=== PATIENT | female | born 2000 | race Caucasian/White ===

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

== ENCOUNTER 2022-05-28 19:06 | Outpatient (REF) | payer MEDICAID, SELFPAY | END 2022-05-28 19:07 | disposition home or self-care (01) | LOC: LBN 19:06 | PROVIDERS: PCP Nurse Practitioner; Visit Provider Nurse Practitioner Family | DX: J02.9 Acute pharyngitis, unspecified (principal) | CPT/HCPCS: 87077; 87070 ==

== ENCOUNTER 2023-03-08 19:55 | Emergency (ER) | payer MEDICAID, SELFPAY ==
[2023-03-08 19:58] VITALS: BP 129/86; PULSE 113; RESP 16; TEMP 36.8; O2SAT 100
--- NOTE | 2023-03-08 20:17 | DI.RAD_ITS ---
Exam(s) XR WRIST LT COMPLETE EXAM: XR WRIST LT COMPLETE CLINICAL HISTORY: radial aspect pain; hit with PS controller. TECHNIQUE: 2D digital imaging was performed of the left wrist. Three images were obtained. PA, obl ique and lateral views were obtained. COMPARISON: CR XR WRIST LT LIMITED from 06/20/2020 FINDINGS: BONES: No acute fracture is present. No bony destructive lesion is seen. JOINTS: The carpal bones are normally aligned. SOFT TISSUE: Normal. IMPRESSION: Unremarkable radiographs of the left wrist. DATA REPOSITORY: RADIATION DOSE DELIVERED:
--- NOTE | 2023-03-08 20:30 | ED.GENADUL_ITS ---
Discharge Plan Disposition Patient Disposition: Home Condition: Improving Discharge Details Chief Complaint: Orthopedic Clinical Impression: Contusion of wrist Primary Care Provider: Batsheva Draper ED Provider: Orlin Escobar Home Meds and New Rx's Prescriptions: No Action citalopram 20 mg tablet 20 mg PO DAILY Qty: 90 4RF medroxyprogesterone [Depo-Provera] 150 mg/mL suspension 150 mg IM Q12W Qty: 1 3RF Metamucil [place] Powder 1 tbsp PO BID Qty: 575 4RF amitriptyline 50 mg tablet 50 mg PO QHS Qty: 90 4RF montelukast [Singulair] 10 mg tablet 10 mg PO DAILY Qty: 90 4RF cetirizine 10 mg tablet 20 mg PO DAILY Qty: 90 4RF albuterol sulfate [Ventolin HFA] 90 mcg/actuation HFA aerosol inhaler 2 puff inhalation Q6H PRN (Reason: shortness of breath or wheezing) Qty: 8.5 3RF azelastine 0.05 % drops 1 drp OP BID PRN Discharge Instructions Instructions: Contusion in Adults (ED) Medical Decision Making 22-year-old female presents for evaluation of left wrist pain after excellently hit herself in the wrist with a PlayStation controller. Pain to distal radial aspect of wrist, neurovascular exam of limb intact. Likely simple contusion lower suspicion for fracture or dislocation. Trial of analgesia anti- inflammatory screening x-ray. Likely home with home care instructions and return precautions 22: 21 patient resting comfortably no acute distress x-ray unremarkable. Range of motion has returned. Likely contusion versus sprain HPI General Date/Time Provider Initiated Documentation: 03/08/23 20:17 . HPI Narrative: 22-year-old female presents for evaluation of left wrist pain, patient accidentally hit her own wrist with a PlayStation controller Related Data Home Medications Medication Instructions Recorded Confirmed azelastine 0.05 % eye drops 1 drp ophthalmic (eye) BID PRN 04/29/20 03/08/23 psyllium seed (sugar) oral powder 1 tbsp PO BID #575 grams 02/06/21 03/08/23 (Metamucil [place] oral powder) amitriptyline 50 mg tablet 50 mg PO QHS #90 tabs 11/03/21 03/08/23 montelukast 10 mg tablet 10 mg PO DAILY #90 tabs 11/03/21 03/08/23 (Singulair) cetirizine 10 mg tablet 20 mg PO DAILY #90 tabs 07/14/22 03/08/23 albuterol sulfate 90 mcg/actuation 2 puff inhalation Q6H PRN 10/06/22 03/08/23 aerosol inhaler (Ventolin HFA) shortness of breath or wheezing #8.5 grams citalopram 20 mg tablet 20 mg PO DAILY #90 tabs 12/03/22 03/08/23 medroxyprogesterone 150 mg/mL 150 mg IM Q12W #1 mL 12/03/22 03/08/23 intramuscular suspension (Depo-Provera) Previous Rx's Medication Instructions Recorded psyllium seed (sugar) oral powder 1 tbsp PO BID #575 grams 02/06/21 (Metamucil [place] oral powder) amitriptyline 50 mg tablet 50 mg PO QHS #90 tabs 11/03/21 montelukast 10 mg tablet 10 mg PO DAILY #90 tabs 11/03/21 (Singulair) cetirizine 10 mg tablet 20 mg PO DAILY #90 tabs 07/14/22 albuterol sulfate 90 mcg/actuation 2 puff inhalation Q6H PRN 10/06/22 aerosol inhaler (Ventolin HFA) shortness of breath or wheezing #8.5 grams citalopram 20 mg tablet 20 mg PO DAILY #90 tabs 12/03/22 medroxyprogesterone 150 mg/mL 150 mg IM Q12W #1 mL 12/03/22 intramuscular suspension (Depo-Provera) Allergies Allergy/AdvReac Type Severity Reaction Status Date / Time animal dander Allergy Verified 03/08/23 20:02 cranberry Allergy Verified 03/08/23 20:02 house dust Allergy Verified 03/08/23 20:02 pollen extracts Allergy Verified 03/08/23 20:02 amoxicillin Allergy Uncoded 03/08/23 20:02 General Stated Complaint: Orthopedic ELIZABETH: 4 Review of Systems Narrative: Review of Systems Constitutional: negative Eyes: negative ENT: negative Cardiovascular: negative Respiratory: negative Gastrointestinal: negative : negative Musculoskeletal: Wrist pain Skin: negative Neurologic: negative Psych: negative PFSH All Active Problems (Updated 03/08/23 @ 22:21 by Orlin Escobar MD) Contusion of wrist (Acute) Dizziness (Acute) Headache (Acute) Tonsillar hypertrophy (Acute) Contraception management (Acute) Swollen tonsil (Acute) Depression (Chronic) Morbid obesity (Acute) Bronchospasm (Acute) Seasonal allergies (Acute) Medical History Concussion Constipation Surgical History History of sinus surgery mass removed, 4 months in hospital age 8 2009 Family History Mother Asthma Depression Diabetes Heart disease Hyperlipidemia Hypertension Sister Asthma Depression Social History (Updated 12/04/22 @ 12:04 by Gretchen Aguilar) Smoking/Tobacco Use Status: Never Second Hand Exposure: Yes Smoking risk assessment performed?: Yes Alcohol Intake: never Drug use: Never Substance use type: does not use Caregiver/Support person: No Household members: family Housing: apartment Communication Needs: None Do you need help understanding health information?: Never Pets and animals: Yes Pets and animals: cat(s) Sexually active: No Do you think of yourself as: straight/heterosexual Current gender identity: female What is your relationship status?: never How often do you talk on the phone with friends or family?: three or more times per week How often do you get together with friends or relatives?: twice per week How often do you attend oriental orthodox or protestant services?: 1-3 times per year Do you belong to any clubs or organized social groups?: no Panel score (0-1 are the most socially isolated patients): 1 What type of physical activity do you participate in: walking Duration: > 90 minutes/day Frequency: daily Enriqueta/Restorationism: Worship Special enriqueta needs: No Seatbelt use: always Helmet use: Yes Helmet use: always Drive intox or ride w/intox 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 operator: No Do you feel safe at home: Yes Do you feel safe in your relationship?: Yes Female Reproductive History Menstrual Age of Menarche: 14 Duration of menses: 3-5 days Exam Narrative Exam Narrative: Physical Examination General: alert, awake, cooperative, resting comfortably, no acute distress Extremities: Discomfort to palpation of radial aspect of distal wrist, no deformity crepitus or step-off noted, radial pulse intact, median radial and ulnar nerve distribution sensory exam intact, flexion extension of fingers intact range of motion and strength in thumb intact Course Vital Signs Vital signs: Vital Signs Temperature 36.8 C 03/08/23 19:58 Pulse 113 H 03/08/23 19:58 Respiratory Rate 16 03/08/23 19:58 Blood Pressure 129/86 03/08/23 19:58 Pulse Oximetry 100 03/08/23 19:58 Temperature 36.8 C 03/08/23 19:58 Temperature Source Temporal Artery Scan 03/08/23 19:58 Pulse 113 H 03/08/23 19:58 Respiratory Rate 16 03/08/23 19:58 Respiratory Effort Normal 03/08/23 19:58 Blood Pressure 129/86 03/08/23 19:58 Blood Pressure Position Sitting 03/08/23 19:58 Pulse Oximetry 100 03/08/23 19:58 Oxygen Delivery Method Room Air 03/08/23 19:58 Oxygen Flow Rate 0 03/08/23 19:58 Pain Level 6 03/08/23 20:12 Lab/Test Results Lab/Test Results: POC- Test(urine) Negative
--- NOTE | 2023-03-08 21:10 | DI.VRAD_ITS ---
PROCEDURE INFORMATION: Exam: XR Left Wrist Exam date and time: 03/08/2023 8:33 PM Age: 22 years old Clinical indication: Other: Radial aspect pain; Hit with ps controller TECHNIQUE: Imaging protocol: Radiologic exam of the left wrist. Views: 3 or more views. COMPARISON: CR XR WRIST LT LIMITED 06/20/2020 2:02 PM FINDINGS: Bones/joints: Normal. Soft tissues: Normal. IMPRESSION: No acute findings. Dictated and Authenticated by: Omega Ríos MD. Ordering:BAUDILIO Ordaz MD
[2023-03-08] MEDS: Ibuprofen 400 MG TAB PO (21:44)
== END 2023-03-08 22:28 | disposition home or self-care (01) ==
PROVIDERS: Emergency Provider Emergency Medicine; PCP Nurse Practitioner Family
DX: S60.212A Contusion of left wrist, initial encounter (principal); W22.8XXA Striking against or struck by other objects, initial encounter
CPT/HCPCS: 81025; 99283; 73110

== ENCOUNTER 2023-03-29 08:00 | Day surgery (SDC) | payer MEDICAID, SELFPAY ==
[2023-03-29] VITALS (9 sets, daily range): BP systolic 101–127; BP diastolic 39–88; PULSE 76–100; RESP 13–20; TEMP 35.8–36.8; O2SAT 99–100; BMI 42.0
--- NOTE | 2023-03-29 06:55 | ANES.PREOP_ITS ---
General Info Date of Service Date Performed: 03/29/23 Height: 5 ft 1 in Weight: 100.953 kg Body Mass Index (BMI): 42.0 Surgical Procedure: Operation Date: 03/29/23 10:10 Proposed Procedure Side Surgeon p Tonsillectomy & Possible Adenoidectomy Sandro Lira MD Meds Allergies and Home Medications Allergies Allergy/AdvReac Type Severity Reaction Status Date / Time animal dander Allergy Verified 03/29/23 08:23 cranberry Allergy Verified 03/29/23 08:23 house dust Allergy Verified 03/29/23 08:23 pollen extracts Allergy Verified 03/29/23 08:23 amoxicillin Allergy Severe Other (See Uncoded 03/29/23 08:23 Comment) Home Medication Medication Instructions Recorded azelastine 0.05 % eye drops 1 drp ophthalmic (eye) BID PRN 04/29/20 psyllium seed (sugar) oral powder 1 tbsp PO BID #575 grams 02/06/21 (Metamucil [place] oral powder) amitriptyline 50 mg tablet 50 mg PO QHS #90 tabs 11/03/21 montelukast 10 mg tablet 10 mg PO DAILY #90 tabs 11/03/21 (Singulair) cetirizine 10 mg tablet 20 mg PO DAILY #90 tabs 07/14/22 albuterol sulfate 90 mcg/actuation 2 puff inhalation Q6H PRN 10/06/22 aerosol inhaler (Ventolin HFA) shortness of breath or wheezing #8.5 grams citalopram 20 mg tablet 20 mg PO DAILY #90 tabs 12/03/22 medroxyprogesterone 150 mg/mL 150 mg IM Q12W #1 mL 12/03/22 intramuscular suspension (Depo-Provera) sumatriptan succinate 50 mg tablet See Rx Instructions PO .COMPLEX 03/09/23 #10 tabs Current Visit Medications: Current Medications Generic Name Dose Route Start Last Admin Trade Name Freq PRN Reason Stop Dose Admin Ringer's Solution 1,000 mls @ 80 mls/hr 03/29/23 06:00 IV 04/25/23 23:59 INFUSION CLYDE Tranexamic Acid 1,000 mg/ 60 mls @ 360 mls/hr 03/29/23 06:00 Sodium Chloride IVPB 03/29/23 18:00 PREOP CLYDE Clindamycin Phosphate/Dextrose 900 mg in 50 mls @ 50 mls/hr 03/29/23 06:00 Cleocin In D5w IVPB 03/29/23 18:00 PREOP CLYDE IV Miscellaneous Supplies 1 each 03/29/23 06:00 Iv Access IV 04/25/23 23:59 DIRECTED CLYDE Sodium Chloride 0 ml 03/29/23 06:00 Normal Saline Flush 10 Ml Syr IV 04/25/23 23:59 PRN PRN Sodium Chloride 0 ml 03/29/23 06:00 Normal Saline 10 Ml Vial IJ 04/25/23 23:59 DIRECTED PRN Sterile Water 0 ml 03/29/23 06:00 Water,Injection,Sterile 10 Ml Vial IJ 04/25/23 23:59 DIRECTED PRN PFSH Active Problems Active Problems: Problem Status Onset Code Seasonal allergies J30.2 Bronchospasm J98.01 Morbid obesity E66.01 Depression F32.9 Swollen tonsil J35.1 Contraception management Z30.9 Tonsillar hypertrophy J35.1 Headache R51.9 Dizziness R42 Contusion of wrist S60.219A Medical History Medical History Concussion Constipation Surgical History Surgical History History of sinus surgery mass removed, 4 months in hospital age 8 2009. RENETTA Rodríguez Tobacco Smoking/Tobacco Use Status: Never Passive smoking exposure: Yes Second hand exposure: Yes Alcohol Alcohol Intake: never Substance Use Substance use: Never Substance use type: does not use Vital Signs and Lab Results Vital Signs Most Recent Vital Signs in EMR: Temp Pulse Resp BP Pulse Ox 36.8 C 100 H 20 127/88 99 03/29/23 08:30 03/29/23 08:30 03/29/23 08:30 03/29/23 08:30 03/29/23 08:30 Lab Results Blood Type / Crossmatch: No Data to Display Complete Blood Count: No Data to Display Complete Metabolic Panel: No Data to Display Liver Function Panel: No Data to Display Coagulation Panel: No Data to Display Cardiac Panel: 2 No Data to Display Arterial Blood Gas: No Data to Display Venous Blood Gas: No Data to Display Pancreas Panel: No Data to Display Thyroid Panel: No Data to Display Infectious Disease: No Data to Display Blood Cultures: No Data to Display Toxicology Panel: No Data to Display Panel: No Data to Display Imaging and Studies Imaging and Studies Study information below may be from another EMR and interpreted by another provider. Please see original notes in EMR for more complete details. EKG Summary: 09/08: sinus rhythm Anesthesia Assessment and Plan Anesthesia History Personal History: No History of Anesthesia Complications Family History: No Family History of Anesthesia Complications Exercise Tolerance Exercise Tolerance: Metabolic Equivalents>4 Cardiac & Pulmonary Exam Cardiac Exam: Normal S1/S2 Heart Sounds Pulmonary Exam: Clear Bilateral Breath Sounds Implantable Cardiac Device Does patient have a Pacemaker or an ICD?: No Airway Exam Known Difficult Airway: No Mallampati Class: 2 Mouth Opening: Normal (> 3cm) Thyromental Distance: Greater than 3 cm Neck Range of Motion: Full ROM Neck Circumference: Thick Teeth Condition: Normal Dentition ASA Classification ASA Score: ASA 3 Emergency Case?: No NPO Status NPO Status: NPO Clears >2 hours, Solids >8 hours Status Status: Negative HCG Anesthesia Plan Resuscitation Status: Full Code Anesthesia Technique: General Anesthesia Airway Planned: Endotracheal Tube Monitors Used: Standard Monitors Preoperative Comments:: 22 yo female for tonsil removal. Sig PMHx: BMI 42, bronchospasm/asthma (albuterol, singular), depression, never smoker,
[2023-03-29] MEDS: Lactated Ringers 1,000 ML 80 ML IV (08:45)
[2023-03-29] MEDS: CLINDAMYCIN 900 MG/50 ML BAG 50 MG IVPB (09:40)
[2023-03-29] MEDS: Tranexamic Acid 1,000 MG/10 ML VIAL 1000 MG (09:49)
--- NOTE | 2023-03-29 09:57 | TONSIL_PTH ---
PATIENT: Linda Dow LOC: [facility] U#:[id number] AGE/SX: 22/F ROOM: RE03/29/[address]: Sandro Lira MD : 2000 BED: DIS: 03/29/2023 SPEC #: [id number] RECD: 03/29/23 12:30 STATUS: SIXTO REVicky #: [id number] EDEN: 03/29/23 09:[address]: Sandro Lira DEPT: Surgical Specimen RECD BY: [address] ENTERED: 03/29/23 12:31 SP TYPE: TONSIL OTHR DR: Batsheva Draper, MIRELLA Tissues: 1 - TONSIL AGE 17 & OVER 2 - TONSIL AGE 17 & OVER Procedures: GROSS AND MICRO LEVEL 3 Comments: [id number]
--- NOTE | 2023-03-29 10:16 | W.PM.DSUDISC ---
Date of service: 03/29/23 Time of Service: 10:16 Discharge Plan Disposition Condition: Good Discharge Details Reason For Visit: Tonsillectomy Attending Provider: Sandro Lira Primary Care Provider: Batsheva Draper Home Meds and New Rx's Prescriptions: No Action citalopram 20 mg tablet 20 mg PO DAILY Qty: 90 4RF medroxyprogesterone [Depo-Provera] 150 mg/mL suspension 150 mg IM Q12W Qty: 1 3RF Metamucil [employer] Powder 1 tbsp PO BID Qty: 575 4RF amitriptyline 50 mg tablet 50 mg PO QHS Qty: 90 4RF montelukast [Singulair] 10 mg tablet 10 mg PO DAILY Qty: 90 4RF cetirizine 10 mg tablet 20 mg PO DAILY Qty: 90 4RF albuterol sulfate [Ventolin HFA] 90 mcg/actuation HFA aerosol inhaler 2 puff inhalation Q6H PRN (Reason: shortness of breath or wheezing) Qty: 8.5 3RF sumatriptan succinate 50 mg tablet See Rx Instructions PO .COMPLEX Qty: 10 0RF Rx Instructions: take 1 tab at onset of headache; if no relief may repeat 1 tab after at least 2 hrs; max = 4 tabs/24 hr PO azelastine 0.05 % drops 1 drp OP BID PRN Discharge Instructions Additional Instructions: My cell phone number is [phone]. Please call with any questions or concerns. If you are unable to reach me and you feel there is an emergency, please call 911 or proceed to the emergency room Stand Alone Forms: ENT- T&A Instr. Pankaj Referrals: Sandro Lira MD [ [facility] STAFF PHYSICIAN] - (1 month, please call for appointment prior to patient's departure)
--- NOTE | 2023-03-29 10:18 | W.PM.OP ---
Date of service: 03/29/23 Time of Service: 10:18 Operative Note Operative Note DATE OF PROCEDURE: 03/29/23 PRE-OP DIAGNOSIS: Chronic tonsillitis POST-OP DIAGNOSIS: same PROCEDURE: Tonsillectomy SURGEON: Sandro Lira ANESTHESIA TYPE: General LMA/ETT Refer to Anesthesia Record ESTIMATED BLOOD LOSS: 20 PATHOLOGY: other (Tonsils) COMPLICATIONS: None Patient was transported to: PACU Patient's condition: stable Indications: The patient has the above problems. This is proven medically recalcitrant and chronic. Options were explained to the patient regarding further management. She elected undergo tonsillectomy. She is aware that this may not correct all of her sore throats. H&P was reviewed. There is been no change. Risks of narcotics were discussed at length again. Findings: Atrophic adenoids, no debris, posterior choana widely patent, palate intact to inspection and palpation, 2+ tonsils with copious cryptic debris Procedure Description: After obtaining an adequate level of general endotracheal anesthesia the patient was positioned in supine position and prepped and draped in appropriate fashion. A Lucina Luis Fernando mouthgag was carefully introduced into the oral cavity and opened revealed soft and hard palate which were examined revealing no evidence of an occult cleft palate. Adenoids were examined with the above findings. 0.25% Marcaine with 1/100,000 epinephrine was injected into the submucosal planes around each tonsil and then a 12 blade was used to incise mucosa along superior, anterior, and posterior edges of the tonsil. A Lorin elevator was used to disarticulate the tonsil from the superior tonsillar fossa and then a Ureña blade used to strip the tonsil free from the tonsillar fossa down to the inferior pole at which point time a tonsillar snare was used to amputate the tonsil from the tonsillar fossa. Once been accomplished bilaterally electrocautery suction tip catheter set on 15 W coagulation was used to achieve relative hemostasis within the tonsillar beds. A Lucina Luis Fernando mouthgag was relaxed and reopened revealing no further bleeding. Valsalva was performed revealing no bleeding. The Lucina-Luis Fernando mouthgag was relaxed and removed and the patient was awakened and extubated by anesthesia and taken the recovery room in stable condition. I was present throughout the entire case.
--- NOTE | 2023-03-29 10:51 | W.ANESPOSTOP ---
Postoperative Evaluation Date, Time and Location Date Performed: 03/29/23 Time Performed: 10:51 Patient Location: PACU Vital Signs Most Recent Imported Vital Signs: Most Recent Vital Signs Temp Pulse Resp BP Pulse Ox 36.4 C L 78 15 106/72 100 03/29/23 10:34 03/29/23 10:34 03/29/23 10:34 03/29/23 10:34 03/29/23 10:34 Pain Score Most Recent Pain Score: Most Recent Pain Score Pain Level 0 03/29/23 10:34 Assessment Mental Status: Awake (Alert & Oriented to Patient Baseline) Airway and Respiratory Function: Patent airway with normal (patient baseline) respiratory exam Cardiovascular Function: Hemodynamically Stable Hydration Status: Adequately Hydrated Nausea & Vomiting: No Nausea or Vomiting Pain: Pain is tolerable per patient Peripheral Nerve Block: Patient did not receive a nerve block
[2023-03-29] MEDS: HYDROmorphone 2 MG/ML SYR IVP (10:59)
[2023-03-29] MEDS: Normal Saline 10 ML VIAL IJ (10:59)
== END 2023-03-29 12:42 ==
PROVIDERS: PCP Nurse Practitioner Family; Visit Provider Otolaryngology
PROC: (CPT 42826; principal; 2023-03-29 10:00)
DX: J35.01 Chronic tonsillitis (principal)
CPT/HCPCS: 42826; 88304; J0131; J1170; J2001; J2704; J3475

== ENCOUNTER 2024-04-08 21:02 | Emergency (ER) | payer MEDICAID, SELFPAY ==
[2024-04-08 21:03] VITALS: BP 132/73; PULSE 109; RESP 16; TEMP 36.2; O2SAT 99
[2024-04-08 21:08] VITALS: BP 132/73; PULSE 109; RESP 16; TEMP 36.2; O2SAT 99
--- NOTE | 2024-04-08 21:15 | W.ED.GENAD ---
Discharge Plan Disposition Patient Disposition: Home Condition: Stable Discharge Details Clinical Impression: Otitis media Primary Care Provider: Batsheva Draper ED Provider: Hans Castro Home Meds and New Rx's Prescriptions: New cefdinir 300 mg capsule 600 mg PO DAILY 7 Days Qty: 14 0RF Continued montelukast [Singulair] 10 mg tablet 10 mg PO DAILY Qty: 90 4RF albuterol sulfate [Ventolin HFA] 90 mcg/actuation HFA aerosol inhaler 2 puff inhalation Q6H PRN (Reason: shortness of breath or wheezing) Qty: 8.5 3RF azelastine 0.05 % drops 1 drp OP BID PRN (Reason: allergy symptoms) Qty: 6 3RF Metamucil [place] Powder 1 tbsp PO BID Qty: 575 4RF amitriptyline 50 mg tablet 50 mg PO QHS Qty: 90 3RF bupropion HCl 300 mg tablet extended release 24 hr 300 mg PO QAM Qty: 90 1RF cetirizine 10 mg tablet 20 mg PO DAILY Qty: 180 4RF medroxyprogesterone [Depo-Provera] 150 mg/mL suspension 150 mg IM Q12W Qty: 1 3RF Discharge Instructions Instructions: Cefdinir, Ear Infection ED Additional Instructions: You were seen in the emergency department for your right ear pain and redness. This is likely an ear infection and I have sent cefdinir and antibiotic to fight this infection to [place] and was filled. Please use therapeutic dosing of Tylenol (acetamenophen) & Advil (ibuprofen) in an alternating fashion as follows: Take 1000mg of Tylenol every 6 hours without missing doses- that is 4 times per day. Nursing Home in between the Tylenol dosings, take 400-600mg of Advil also on a 6 hour schedule, that is also 4 times per day. The daily maximum dosing of Tylenol is 4000mg, and the daily maximum dosing of Advil is 2400mg. This is safe to do for weeks. Please note that some common cold medications & prescription pain medications may contain acetamenophen and you need to read OTC drug labels and factor that in to maximum daily dosings. Please return to the emergency department for severe increase in pain, pain behind the ear with bogginess, high fever despite Tylenol and ibuprofen use Referrals: Batsheva Draper NP [Primary Care Provider] - [facility] General Date/Time Provider Initiated Documentation: 04/08/24 21:15. HPI Narrative: 23 year-old female presents to ED today by POV/ambulating with a chief complaint of muffled hearing and mild ear pain R ear with onset today. Quality described as ear pain, some muffled hearing, no radiation to fever, cough, shortness of breath, chest pain, sore throat, body aches. Severity is described as mild. Palliating factors include nothing specific attempted. Provoking factors include nothing specific. Patient not anticoagulated. Related Data Home Medications ?Medication ?Instructions ?Recorded ?Confirmed psyllium seed (sugar) oral powder 1 tbsp PO BID #575 grams 02/06/21 04/08/24 (Metamucil [place] oral powder) albuterol sulfate 90 mcg/actuation 2 puff inhalation Q6H PRN 05/25/23 04/08/24 aerosol inhaler (Ventolin HFA) shortness of breath or wheezing #8.5 grams azelastine 0.05 % eye drops 1 drp ophthalmic (eye) BID PRN 05/25/23 04/08/24 allergy symptoms #6 mL montelukast 10 mg tablet 10 mg PO DAILY #90 tabs 07/15/23 04/08/24 (Singulair) cetirizine 10 mg tablet 20 mg (2 x 10 mg) PO DAILY #180 07/20/23 04/08/24 tabs medroxyprogesterone 150 mg/mL 150 mg IM Q12W #1 mL 11/25/23 04/08/24 intramuscular suspension (Depo-Provera) amitriptyline 50 mg tablet 50 mg PO QHS #90 tabs 02/22/24 04/08/24 bupropion HCl 300 mg 24 hr tablet, 300 mg PO QAM #90 tabs 02/22/24 04/08/24 extended release cefdinir 300 mg capsule 600 mg (2 x 300 mg) PO DAILY 7 04/08/24 days #14 caps Previous Rx's ?Medication ?Instructions ?Recorded psyllium seed (sugar) oral powder 1 tbsp PO BID #575 grams 02/06/21 (Metamucil [place] oral powder) albuterol sulfate 90 mcg/actuation 2 puff inhalation Q6H PRN 05/25/23 aerosol inhaler (Ventolin HFA) shortness of breath or wheezing #8.5 grams azelastine 0.05 % eye drops 1 drp ophthalmic (eye) BID PRN 05/25/23 allergy symptoms #6 mL montelukast 10 mg tablet 10 mg PO DAILY #90 tabs 07/15/23 (Singulair) cetirizine 10 mg tablet 20 mg (2 x 10 mg) PO DAILY #180 07/20/23 tabs medroxyprogesterone 150 mg/mL 150 mg IM Q12W #1 mL 11/25/23 intramuscular suspension (Depo-Provera) amitriptyline 50 mg tablet 50 mg PO QHS #90 tabs 02/22/24 bupropion HCl 300 mg 24 hr tablet, 300 mg PO QAM #90 tabs 02/22/24 extended release cefdinir 300 mg capsule 600 mg (2 x 300 mg) PO DAILY 7 04/08/24 days #14 caps Allergies Allergy/AdvReac Type Severity Reaction Status Date / Time amoxicillin Allergy Severe Unknown Verified 04/08/24 21:12 animal dander Allergy Swelling/Ed Verified 04/08/24 21:12 donald cranberry Allergy Hives Verified 04/08/24 21:12 house dust Allergy Wheezing Verified 04/08/24 21:12 pollen extracts Allergy Wheezing Verified 04/08/24 21:12 amoxicillin Allergy Severe Other (See Uncoded 04/08/24 21:12 Comment) General Stated Complaint: EarProblem ELIZABETH: 4 Review of Systems All systems reviewed & are unremarkable except as noted in HPI and below Exam Narrative Exam Narrative: GENERAL APPEARANCE: Well-nourished, non-toxic, awake and alert, atraumatic, no acute distress. SKIN: Warm, pink, dry, intact, without rashes/lesions/ulcerations. HEAD: Normocephalic, atraumatic, normal hair distribution for gender/age. EYES: Pupils PERRLA, EOMs intact without nystagmus, normal conjunctiva, no exudates on lids/lashes. ENT: Nares patent, no circumoral cyanosis, no facial swelling, right TM erythematous and bulging, left TM mild erythema, no mastoid tenderness bilaterally, benign posterior oropharynx NECK: Supple, trachea midline, painless cervical ROM. LUNGS/CHEST: Non-labored respirations, normal A/P diameter, symmetrical expansion, no chest wall deformity HEART (CV/PV): No peripheral edema, no JVD. ABDOMEN: Soft, non-distended, no guarding. MSK: Normal ROM, no swelling/deformity to bilateral UEs or LEs, moving all extremities without weakness, no cyanosis, spine midline without tenderness, normal curvature. NEURO: Mental Status AAOx4 - alert to person, place, time, events No facial droop, no forehead involvement. Motor: No focal weakness - strength 5/5 in bilateral UEs and LEs, proximal and distal, symmetric. Sensory: sensation intact to light touch globally. Gait normal: patient ambulated without ataxia into ED room. PSYCH: euthymic, cooperative, pleasant, appropriate speech Course Vital Signs Vital signs: Vital Signs Temperature 36.2 C L 04/08/24 21:03 Pulse 109 H 04/08/24 21:03 Respiratory Rate 16 04/08/24 21:03 Blood Pressure 132/73 04/08/24 21:03 Pulse Oximetry 99 04/08/24 21:03 Temperature 36.2 C L 04/08/24 21:08 Temperature Source Temporal Artery Scan 04/08/24 21:08 Pulse 109 H 04/08/24 21:08 Respiratory Rate 16 04/08/24 21:08 Respiratory Effort Normal, Non-Labored 04/08/24 21:07 Blood Pressure 132/73 04/08/24 21:08 Blood Pressure Position Sitting 04/08/24 21:08 Pulse Oximetry 99 04/08/24 21:08 Oxygen Delivery Method Room Air 04/08/24 21:08 Oxygen Flow Rate 0 04/08/24 21:03 Pain Level 3 04/08/24 21:08 Medical Decision Making This dictation utilizes [id number] dictation software and may contain unedited grammatical errors. 23 year-old female presents to ED today by POV/ambulating with a chief complaint of muffled hearing and mild ear pain R ear with onset today. Quality described as ear pain, some muffled hearing, no radiation to fever, cough, shortness of breath, chest pain, sore throat, body aches. Severity is described as mild. Palliating factors include nothing specific attempted. Provoking factors include nothing specific. Patients' medical history: Noncontributory. Family and social history: Noncontributory. Pertinent exam findings / vital signs include right TM erythema and bulging, left TM mild erythema, no mastoid tenderness bilaterally, benign posterior oropharynx, no respiratory distress. Differential / pathologies of concern include otitis media, not mastoiditis, unlikely viral syndrome, not upper respiratory infection. Diagnostic studies of: -None. Interventions of: -Prescription for cefdinir. ED Course/Assessment/Plan: 23-year-old female presents with otitis media of right ear, possible spread to left ear, counseled on possible viral syndrome, patient would like antibiotics, reasonable with severe bulging and erythema on the right tympanic membrane, no mastoid tenderness bilaterally, no other signs of impending viral illness like body aches, cough or sore throat or fever. Strict return criteria for pain and bogginess behind the ears, increasing pain with fever. Findings not consistent with mastoiditis, sepsis, toxic presentation. Disposition of otitis media. Patient verbalized understanding of the plan and return to ED criteria and engaged in shared decision making. Medical Records Medical records reviewed: Yes I reviewed the patient's medical records. Quality:[facility] Related Social Needs: No Data to Display PFSH All Active Problems (Updated 04/08/24 @ 21:24 by DAISY Lynch) Otitis media (Acute) Pain, joint, knee, right (Acute) Migraine headache without aura (Acute) Seasonal allergies (Acute) Bronchospasm (Acute) Morbid obesity (Acute) Depression (Chronic) Swollen tonsil (Acute) Contraception management (Acute) Tonsillar hypertrophy (Acute) Headache (Acute) Dizziness (Acute) Medical History Chronic tonsillitis Concussion Constipation Surgical History Hx of tonsillectomy 03/29/2023 History of sinus surgery mass removed, 4 months in hospital age 8 2008. 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 Pets and animals: Yes Pets and animals: cat(s) Sexually active: No Do you think of yourself as: straight/heterosexual Current gender identity: female What is your relationship status?: never How often do you talk on the phone with friends or family?: three or more times per week How often do you get together with friends or relatives?: once per week How often do you attend faith or mu-ism services?: decline to answer Do you belong to any clubs or organized social groups?: no Panel score (0-1 are the most socially isolated patients): 1 What type of physical activity do you participate in: walking Duration: > 90 minutes/day Frequency: daily Enriqueta/Restoration: Adventism Special enriqueta needs: No Seatbelt use: always Drive intox or ride w/intox feeder driver: No Firearms in home: No Do you feel safe at home: Yes Do you feel safe in your relationship?: Yes Victim of physical abuse: No Victim of emotional abuse: No Victim of sexual abuse: No Female Reproductive History Menstrual Age of Menarche: 14 Duration of menses: 3-5 days
[2024-04-08] MEDS: Cefdinir 300 MG CAP 600 MG PO (21:38)
== END 2024-04-08 21:39 | disposition home or self-care (01) ==
LOC: ER 21:39
PROVIDERS: Emergency Provider Physician Assistant; PCP Nurse Practitioner Family
DX: H92.01 Otalgia, right ear (principal); H66.91 Otitis media, unspecified, right ear
CPT/HCPCS: 99282

== ENCOUNTER 2025-01-04 00:37 | Outpatient (CLI) | payer SELFPAY ==
--- NOTE | 2025-01-04 06:45 | DI.RAD_ITS ---
Exam(s) XR FOOT RT COMPLETE EXAM: XR FOOT RT COMPLETE CLINICAL HISTORY: Right foot pain,[id number]. TECHNIQUE: 2D digital imaging was performed. COMPARISON: No exams were available for comparison FINDINGS: 3 views No evidence of fracture or diastasis of the Lisfranc joint. Great toe metatarsophalangeal joint is u nremarkable and there is no hallux valgus. No degenerative changes. No osseous lesions nor erosions . No pes planus. No inferior calcaneal spur. No degenerative changes evident. IMPRESSION: No significant osseous findings in the foot. DATA REPOSITORY: RADIATION DOSE DELIVERED:
== END 2025-01-04 00:57 ==
PROVIDERS: PCP Nurse Practitioner Family; Visit Provider Podiatrist
DX: M79.671 Pain in right foot (principal)
CPT/HCPCS: 73630